=== PATIENT | female | born 1995 | race African-American/Black ===

== ENCOUNTER 2021-02-14 21:16 | Emergency (ER) | payer SELFPAY ==
[2021-02-14] MEDS ORDERED: Lidocaine 1% w/Epinephrine 1:100K 20 ML VIAL ONE (22:52)
== END 2021-02-14 23:18 | disposition home or self-care (01) ==
LOC: CSHERS 21:16
DX: S91.011A Laceration without foreign body, right ankle, initial encounter (principal); W25.XXXA Contact with sharp glass, initial encounter
CPT/HCPCS: 12001

== ENCOUNTER 2021-07-19 09:29 | Emergency (ER) | payer SELFPAY | END 2021-07-19 10:55 | disposition home or self-care (01) | LOC: CSHERS 09:29 | DX: S63.650A Sprain of metacarpophalangeal joint of right index finger, initial encounter (principal); X50.0XXA Overexertion from strenuous movement or load, initial encounter ==

== ENCOUNTER 2023-03-31 11:09 | Emergency (ER) | payer SELFPAY ==
[2023-03-31] MEDS ORDERED: Ondansetron PF 4 MG/2 ML Vial ONE (12:16)
[2023-03-31 12:35] LABS: Bilirubin Neg (Negative); Blood, Urine Negative (Negative); Clarity Slightly Cloudy (Clear); Glucose, Urine (Dipstick) Normal (Negative); Ketone, Urine Negative (Negative); Leukocyte 25 (Negative); Nitrite Negative (Negative); Protein, Urine (Dipstick) 30 mg/dl (Neg-Trace)
[2023-03-31 12:39] LABS: Pregnancy Test - Urine (BHCG) Negative (Negative); Pregu Control Background? CLEAR/WHITE (CLR/WHITE); Pregu Control Bar Appear? YES (CONTROL BAR)
[2023-03-31 12:53] LABS: Bacteria/HPF 1+ HPF (None Seen); CAUTI Indications for Culture Pelvic or flank pain; RBC/HPF 0-3 HPF (0-3)
[2023-03-31 12:55] LABS: Urine Culture Reflex No No
[2023-03-31 13:12] LABS: SARS-CoV-2 NAA Rapid Test Not Detected (NotDetected)
[2023-03-31] MEDS ORDERED: Ketorolac Tromethamine 30 MG/ML VIAL ONE (13:18)
== END 2023-03-31 14:00 | disposition home or self-care (01) ==
LOC: CSHERS 11:09
DX: B34.9 Viral infection, unspecified (principal); R11.10 Vomiting, unspecified; Z20.822 Contact with and (suspected) exposure to COVID-19
CPT/HCPCS: 71045; 81001; 81025; 93005; 96361; 96374; 96375; J1885; J2405

== ENCOUNTER 2024-06-14 16:35 | Emergency (ER) | payer OTHER ==
[2024-06-14] MEDS ORDERED: predniSONE 20 MG TAB ONE (17:02)
[2024-06-14] MEDS ORDERED: Ipratropium/Albuterol 3 ML NEB ONE (17:21)
== END 2024-06-14 18:10 | disposition home or self-care (01) ==
LOC: CSHERS 16:35
DX: J45.901 Unspecified asthma with (acute) exacerbation (principal); J20.9 Acute bronchitis, unspecified; F17.290 Nicotine dependence, other tobacco product, uncomplicated; Z79.899 Other long term (current) drug therapy
CPT/HCPCS: 94640; J7512; J7620

== ENCOUNTER 2024-07-04 17:29 | Emergency (ER) | payer OTHER ==
[~2024-07-04 17:29] MED LIST: Iopamidol 370 76% 100 ML VIAL ONE
[2024-07-04 18:42] LABS: BHCG - Serum Negative (NEGATIVE); Pregs Control Background? CLEAR/WHITE (CLR/WHITE); Pregs Control Bar Appear? YES (CONTROL BAR)
[2024-07-04 18:44] LABS: #Basophils 0.03 10x3/uL (0.0-0.2); #Eosinophils 1.27 10x3/uL (0.0-0.5); #Monocytes 0.52 10x3/uL (0.0-1.1); #Neutrophils 2.55 10x3/uL (1.5-8.4); %Basophils 0.4 % (0.0-2.0); %Eosinophils 15.3 % (0.0-6.0); %Lymphocytes 47.1 % (18.0-47.0); %Monocytes 6.3 % (0.0-10.0); %Neutrophils 30.8 % (40.0-75.0); Hematocrit 39.7 % (34.9-44.5); Hemoglobin 12.2 g/dL (12.0-15.5); Mean Corpuscular HGB CONC 30.7 g/dL (32.0-36.0); Mean Corpuscular Hemoglobin 22.2 pg (27.0-33.0); Mean Corpuscular Volume 72.2 fL (81.6-98.3); Mean Platelet Volume 10.5 fL (7.4-10.4); Platelet Count 272 10x3/uL (150-450); RBC Distribution Width 14.7 % (11.5-14.5); White Blood Cell (WBC) Count 8.3 10x3/uL (3.5-10.5)
[2024-07-04 18:50] LABS: ALT (SGPT) 22 U/L (8-55); AST (SGOT) 21 U/L (5-34); Albumin 3.6 g/dL (3.5-5.0); Alkaline Phosphatase 48 U/L (40-110); Anion Gap 14 mmol/L (10-20); BUN (Urea Nitrogen) 8 mg/dL (7.0-18.7); Bilirubin, Total 0.3 mg/dL (0.2-1.2); Calc. Creatinine Clearance 0 mL/min (70-130); Calcium 9.3 mg/dL (7.8-10.44); Carbon Dioxide 23 mmol/L (22-29); Chloride 106 mmol/L (98-107); Estimated GFR 97; Globulin 3.5 g/dL (2.4-3.5); Glucose 87 mg/dL (70-105); Protein, Total 7.1 g/dL (6.0-8.3); Sodium 139 mmol/L (136-145)
[2024-07-04 18:54] LABS: Microcytosis SLIGHT = 6-15 cells (100X) (0-5/hpf); Platelet Adequacy Comment Platelets Normal
== END 2024-07-04 19:55 | disposition home or self-care (01) ==
LOC: CSHERS 17:29
DX: R05.9 Cough, unspecified (principal); F17.290 Nicotine dependence, other tobacco product, uncomplicated; Z55.6 Problems related to health literacy
CPT/HCPCS: 36415; 71045; 71275; 80053; 84703; 85025; 85379; 93005; Q9967

== ENCOUNTER 2025-04-14 07:47 | Day surgery (SDC) | payer OTHER ==
[2025-04-13 13:14] VITALS: BMI 37.1
[2025-04-14] MEDS ORDERED: AFRIN NASAL MIST 15 ML BOT ONE ×2 (08:34→09:59)
[2025-04-14] MEDS ORDERED: Oxymetazoline HCl 0.05% (15 ML) ONE (08:45)
[2025-04-14 09:16] LABS: Hematocrit 41.3 % (34.9-44.5)
[2025-04-14 09:26] LABS: BHCG - Serum Negative (NEGATIVE); Pregs Control Background? CLEAR/WHITE (CLR/WHITE); Pregs Control Bar Appear? YES (CONTROL BAR)
[2025-04-14] MEDS ORDERED: PROPOFOL 20 ML ONE (09:59)
[2025-04-14] MEDS ORDERED: Bacitracin 1 PK ONE (09:59)
[2025-04-14] MEDS ORDERED: Lidocaine 1% w/Epinephrine 1:200K 30 ML VIAL ONE (09:59)
[2025-04-14] MEDS ORDERED: Ondansetron PF 4 MG/2 ML Vial ONE (10:00)
[2025-04-14] MEDS ORDERED: Lidocaine 1% PF 5 ML VIAL ONE (10:00)
[2025-04-14] MEDS ORDERED: SUGAMMADEX SODIUM 200 MG/2 ML VIAL ONE (12:25)
[2025-04-14] MEDS ORDERED: HYDROcodone/Acetaminophen 5/325 mg Tablet ONE (13:58)
== END 2025-04-14 14:45 | disposition home or self-care (01) ==
LOC: CSHSDC 07:47
PROVIDERS: ATTEND Specialist
PROC: 09BU8ZZ Excision of Right Ethmoid Sinus, Via Natural or Artificial Opening Endoscopic (ICD-10-PCS; principal; 2025-04-14)
PROC: 09BX8ZZ Excision of Left Sphenoid Sinus, Via Natural or Artificial Opening Endoscopic (ICD-10-PCS; principal; 2025-04-14)
PROC: 09BT8ZZ Excision of Left Frontal Sinus, Via Natural or Artificial Opening Endoscopic (ICD-10-PCS; principal; 2025-04-14)
PROC: 09BQ8ZZ Excision of Right Maxillary Sinus, Via Natural or Artificial Opening Endoscopic (ICD-10-PCS; principal; 2025-04-14)
PROC: 09BR8ZZ Excision of Left Maxillary Sinus, Via Natural or Artificial Opening Endoscopic (ICD-10-PCS; principal; 2025-04-14)
PROC: 09BS8ZZ Excision of Right Frontal Sinus, Via Natural or Artificial Opening Endoscopic (ICD-10-PCS; principal; 2025-04-14)
PROC: 09BV8ZZ Excision of Left Ethmoid Sinus, Via Natural or Artificial Opening Endoscopic (ICD-10-PCS; principal; 2025-04-14)
PROC: 09BW8ZZ Excision of Right Sphenoid Sinus, Via Natural or Artificial Opening Endoscopic (ICD-10-PCS; principal; 2025-04-14)
PROC: 09BL8ZZ Excision of Nasal Turbinate, Via Natural or Artificial Opening Endoscopic (ICD-10-PCS; principal; 2025-04-14)
DX: J32.4 Chronic pansinusitis (principal); J34.3 Hypertrophy of nasal turbinates; J34.2 Deviated nasal septum; J30.89 Other allergic rhinitis; R09.81 Nasal congestion
CPT/HCPCS: 36415; 84703; 85014; J0169; J1100; J2250; J2405; J2704; J3010